=== PATIENT | male | born 1990 | race Caucasian/White ===

== ENCOUNTER 2018-04-13 19:04 | Emergency (ER) | payer SELFPAY ==
[2018-04-13] MEDS ORDERED: LEVI SUBQ (19:11)
[2018-04-13] MEDS ORDERED: INSU100V24 SQ (19:11)
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
[2018-04-13 19:45] LABS: PLATELET COUNT, AUTOMATED 310 K/uL (150-450)
[2018-04-13] MEDS ORDERED: IOPAMIDOL 76% 75 ML INFUS BTL 75 ML ONE ×2 (20:08→22:34)
[2018-04-13] MEDS ORDERED: MORPHINE 4 MG/ML SDV IVP ONE ×2 (21:10→22:40)
[2018-04-13] MEDS ORDERED: NS(*) 0.9% 1000 ML BAG 1,000 ML IV ONE (21:10)
--- NOTE | 2018-04-13 21:36 | RADIOLOGY IMAGING REPORT ---
FACILITY: [facility] PATIENT NAME: Denis Spann : 1990 MR: [id number] V: [id number] EXAM DATE: ORDERING PHYSICIAN: MICHELLE JOSHI TECHNOLOGIST: [place] [facility] [place] Denis Spann : 1990 Visit/Account:[id number] Date of Sevice: 04/13/2018 EXAMINATION: CT right foot with IV contrast HISTORY: Foot infection. Cut on plantar side of the foot. Swelling. TECHNIQUE: Thin axial CT images of the right foot were obtained with IV contrast, with coronal and sagittal 2D reconstructed images. One of the following dose optimization techniques was utilized in the performance of this exam: Autom ated exposure control; adjustment of the mA and/or kV according to the patient's size; or use of an i terative reconstruction technique. Specific details can be referenced in the facility's radiology C T exam operational policy. Contrast: 75 mL of IV Isovue-370. COMPARISON: None. FINDINGS: Image quality is mildly degraded by patient motion artifact. There is localized soft tissue swelling and laceration along the lateral aspect of the plantar midfoo t at the level of the proximal metatarsals. There is a small poorly defined fluid pocket in the super ficial subcutaneous soft tissues at this level measuring approximately 2.5 x 1.0 x 2.1 cm, without an y well-defined abscess. No radiopaque foreign body or soft tissue gas. No CT evidence of any deep sof t tissue infection, with these changes predominantly limited to the subcutaneous soft tissues. No acute osseous findings in the right foot. No evidence of fracture or dislocation. Normal alignment . Joint spaces are preserved. Normal mineralization. IMPRESSION: 1. Localized soft tissue swelling and laceration along the lateral aspect of the plantar midfoot. 2. Small poorly defined fluid pocket in the superficial subcutaneous soft tissues at this location, w ithout any well-defined abscess. No CT evidence of any deep soft tissue infectious process. 3. No opaque foreign body or soft tissue gas. 4. No acute osseous findings in the right foot. Report Dictated By: Ethan Buckner MD at 04/13/2018 9:01 PM Report E-Signed By: Ethan Buckner MD at 04/13/2018 9:32 PM WSN:[id number]
[2018-04-13] MEDS ORDERED: CLINDAMYCIN(*) 300 MG/2 ML VI 300 MG in NS(*) 0.9% 100 ML BAG 100 ML IVPB ONE (22:10)
[2018-04-13] MEDS ORDERED: HYDR-385 PO (22:12)
[2018-04-13] MEDS ORDERED: CIPR-214 PO (22:12)
[2018-04-13] MEDS ORDERED: CLIN300C99 PO (22:12)
[2018-04-13 22:54] VITALS: BP 116/72
[2018-04-13] MEDS ORDERED: CIPROFLOXACIN 500 MG TAB PO ONE (23:30)
[2018-04-13] MEDS ORDERED: ACET/HYDROC 5/325MG TH ER ONLY 2 TAB/BOTTLE PO ONE (23:30)
--- NOTE | 2018-04-14 11:23 | RADIOLOGY IMAGING REPORT ---
FACILITY: [facility] - [place] PATIENT NAME: Denis Spann : 1990 MR: [id number] V: [id number] EXAM DATE: ORDERING PHYSICIAN: MICHELLE JOSHI TECHNOLOGIST: Location: [facility] - [place] Patient: Denis Spann : 1990 Visit/Account:[id number] Date of Sevice: 04/13/2018 ADDENDUM #1 Addendum: Original report describes examination as being of the right foot. This is incorrect. Imaging was perf ormed of the left foot. Of note, a portion of the forefoot was originally excluded on the initial scan. The patient was broug ht back to the CT department and additional imaging of the left foot was performed to include the ent mary left foot. Remainder of the report is unchanged. Report Dictated By: Ethan Buckner MD at 04/14/2018 2:02 PM Report E-Signed By: Ethan Buckner MD at 04/14/2018 2:06 PM ORIGINAL REPORT EXAMINATION: CT right foot with IV contrast HISTORY: Foot infection. Cut on plantar side of the foot. Swelling. TECHNIQUE: Thin axial CT images of the right foot were obtained with IV contrast, with coronal and sagittal 2D reconstructed images. One of the following dose optimization techniques was utilized in the performance of this exam: Autom ated exposure control; adjustment of the mA and/or kV according to the patient's size; or use of an i terative reconstruction technique. Specific details can be referenced in the facility's radiology C T exam operational policy. Contrast: 75 mL of IV Isovue-370. COMPARISON: None. FINDINGS: Image quality is mildly degraded by patient motion artifact. There is localized soft tissue swelling and laceration along the lateral aspect of the plantar midfoo t at the level of the proximal metatarsals. There is a small poorly defined fluid pocket in the super ficial subcutaneous soft tissues at this level measuring approximately 2.5 x 1.0 x 2.1 cm, without an y well-defined abscess. No radiopaque foreign body or soft tissue gas. No CT evidence of any deep sof t tissue infection, with these changes predominantly limited to the subcutaneous soft tissues. No acute osseous findings in the right foot. No evidence of fracture or dislocation. Normal alignment . Joint spaces are preserved. Normal mineralization. IMPRESSION: 1. Localized soft tissue swelling and laceration along the lateral aspect of the plantar midfoot. 2. Small poorly defined fluid pocket in the superficial subcutaneous soft tissues at this location, w ithout any well-defined abscess. No CT evidence of any deep soft tissue infectious process. 3. No opaque foreign body or soft tissue gas. 4. No acute osseous findings in the right foot. Report Dictated By: Ethan Buckner MD at 04/13/2018 9:01 PM Report E-Signed By: Ethan Buckner MD at 04/13/2018 9:32 PM [id number]
== END 2018-04-13 23:47 | disposition home or self-care (01) ==
LOC: ER 19:08
DX: L03.116 Cellulitis of left lower limb (principal)
CPT/HCPCS: 73701; 81001; 85025; 86140; 87070; 96361; 96365; 96375; 96376; 99284; J2270; J3490; J7030; J7050; Q9967; 82040; 82247; 82310; 82374; 82435; 82565; 82947; 84075; 84132; 84155; 84295; 84450; 84460; 84520; 87077; 87186